=== PATIENT | female | born 1990 | race Caucasian/White ===

== ENCOUNTER 2016-11-02 12:04 | Outpatient (CLI) | payer MEDICAID ==
--- NOTE | 2016-11-02 12:47 | Non Stress Test Report ---
Non Stress Test Datetime Report Generated by CPN: 11/02/2016 12:46 INDICATION Indication for Study: Ordered by Provider; Other Indication for Study (NST) Other: 2vc report MONITORING Monitor Explained: Monitor Explained; Test Explained; Patient Verbalized Understanding Time on Monitor: 11/02/2016 12:25 Time off Monitor: 11/02/2016 12:45 NST Duration: 20 NST INTERVENTIONS NST Interventions: PO Hydration; Reposition Patient Physician Notified NST: Dr Neilsen BABY A: [id number] BABY A Movement : Present Contraction Frequency : none FHR Baseline : 135 Accelerations : 15X15 Decelerations : None Variability : Moderate 6-25bpm NST Review: Meets Criteria for Reactive NST NST Review and Verified By : Cole Bedoya RN NST REPORT Report Trigger: Send Report
--- NOTE | 2016-11-02 15:52 | L&D Discharge Summary ---
OB Discharge Summary Datetime Report Generated by CPN: 11/02/2016 15:52 DISCHARGE DIAGNOSIS Diagnoses/Symptoms Other: Reactive NST, not in labor DIET/ACTIVITY/RESTRICTIONS Diet: Regular Activity: Normal Activity TEACHING/INSTRUCTIONS/REFERRALS Instructions Given To: Patient/family Instructions Understood: Patient Verbalized Understanding; Support Person Verbalized Understanding Referrals: None Educational Materials- Other: Kick counts DISCHARGE INFORMATION Discharged AMA: No Discharge Date/Time: 11/02/2016 12:51 Discharged To: Home Discharge Provider Name: Dr Ruthyen Accompanied By: FOB Discharge Method: Ambulatory Condition: Stable FOLLOW UP INFORMATION Follow Up With: [facility] Follow Up On: As Scheduled
--- NOTE | 2016-11-02 15:53 | L&D Discharge Summary ---
OB Discharge Summary Datetime Report Generated by CPN: 11/02/2016 15:53 DISCHARGE DIAGNOSIS Diagnoses/Symptoms Other: Reactive NST, not in labor DIET/ACTIVITY/RESTRICTIONS Diet: Regular Activity: Normal Activity TEACHING/INSTRUCTIONS/REFERRALS Instructions Given To: Patient/family Instructions Understood: Patient Verbalized Understanding; Support Person Verbalized Understanding Referrals: None Educational Materials- Other: Kick counts DISCHARGE INFORMATION Discharged AMA: No Discharge Date/Time: 11/02/2016 12:51 Discharged To: Home Discharge Provider Name: Dr Ruthyen Accompanied By: FOB Discharge Method: Ambulatory Condition: Stable FOLLOW UP INFORMATION Follow Up With: [facility] Follow Up On: As Scheduled
--- NOTE | 2016-11-03 22:50 | L&D General Admission ---
General Admit Datetime Report Generated by CPN: 11/03/2016 22:45 INFORMATION Patient Age: 26 (11/02/2016 12:04:QS system process) CARE Height (in): 65 (11/02/2016 12:41:QS system process) ALLERGIES Medication Allergies: erythromycin base/MO (11/02/2016) (11/02/2016 12:41:QS system process) Medication Allergies: erythromycin base/MO (06/03/2015) (11/02/2016 12:04:QS system process) DEMOGRAPHICS Address: [address] [place] [id number] (11/02/2016 12:04:QS system process) Zipcode: [address] (11/02/2016 12:04:QS system process) Home (11/02/2016 12:04:QS system process) SSN: [id number] (11/02/2016 12:04:QS system process) Next of Kin Name: ANAHI HAILE (11/02/2016 12:04:QS system process) Next of Kin (11/02/2016 12:04:QS system process) Next of Kin Relationship: OR (11/02/2016 12:04:QS system process) Date of : 1990 (11/02/2016 12:04:QS system process) Marital Status: Single (11/02/2016 12:04:QS system process) Sex: Female (11/02/2016 12:04:QS system process) Race: (11/02/2016 12:04:QS system process) Ethnicity: Non- or (11/02/2016 12:04:QS system process) Druze: None (11/02/2016 12:04:QS system process)
--- NOTE | 2016-11-03 22:50 | Antepartum Discharge Summary ---
Antepartum DC Datetime Report Generated by CPN: 11/03/2016 22:45 DIET/ACTIVITY/RESTRICTIONS Diet: Regular (11/02/2016 12:48:Keila Bedoya RN) Activity: Normal Activity (11/02/2016 12:48:Keila Bedoya RN) TEACHING/INSTRUCTIONS/REFERRALS Instructions Given To: Patient/family (11/02/2016 12:48:Keila Bedoya RN) Instructions Understood: Patient Verbalized Understanding; Support Person Verbalized Understanding (11/02/2016 12:48:Keila Bedoya RN) Referrals: None (11/02/2016 12:48:Keila Bedoya RN) Educational Materials- Other: Kick counts (11/02/2016 12:48:Keila Bedoya RN) DISCHARGE INFORMATION Discharged AMA: No (11/02/2016 12:48:Keila Bedoya RN) Discharge Date/Time: 11/02/2016 12:51 (11/02/2016 12:48:Keila Bedoya RN) Discharged To: Home (11/02/2016 12:48:Keila Bedoya RN) Discharge Provider Name: Dr Francois (11/02/2016 12:48:Keila Bedoya RN) Accompanied By: FOB (11/02/2016 12:48:Keila Bedoya RN) Discharge Method: Ambulatory (11/02/2016 12:48:Keila Bedoya RN) Condition: Stable (11/02/2016 12:48:Keila Bedoya RN) FOLLOW UP INFORMATION Follow Up With: [facility] (11/02/2016 12:48:Keila Bedoya RN) Follow Up On: As Scheduled (11/02/2016 12:48:Keila Bedoya RN)
--- NOTE | 2016-11-03 22:50 | L&D Discharge Summary ---
OB Discharge Summary Datetime Report Generated by CPN: 11/03/2016 22:45 DISCHARGE DIAGNOSIS Diagnoses/Symptoms Other: Reactive NST, not in labor DIET/ACTIVITY/RESTRICTIONS Diet: Regular Activity: Normal Activity TEACHING/INSTRUCTIONS/REFERRALS Instructions Given To: Patient/family Instructions Understood: Patient Verbalized Understanding; Support Person Verbalized Understanding Referrals: None Educational Materials- Other: Kick counts DISCHARGE INFORMATION Discharged AMA: No Discharge Date/Time: 11/02/2016 12:51 Discharged To: Home Discharge Provider Name: Dr Ruthyen Accompanied By: FOB Discharge Method: Ambulatory Condition: Stable FOLLOW UP INFORMATION Follow Up With: [facility] Follow Up On: As Scheduled
--- NOTE | 2016-11-04 04:49 | Antepartum Discharge Summary ---
Antepartum DC Datetime Report Generated by CPN: 11/04/2016 04:46 DIET/ACTIVITY/RESTRICTIONS Diet: Regular (11/02/2016 12:48:Keila Bedoya RN) Activity: Normal Activity (11/02/2016 12:48:Keila Bedoya RN) TEACHING/INSTRUCTIONS/REFERRALS Instructions Given To: Patient/family (11/02/2016 12:48:Keila Bedoya RN) Instructions Understood: Patient Verbalized Understanding; Support Person Verbalized Understanding (11/02/2016 12:48:Keila Bedoya RN) Referrals: None (11/02/2016 12:48:Keila Bedoya RN) Educational Materials- Other: Kick counts (11/02/2016 12:48:Keila Bedoya RN) DISCHARGE INFORMATION Discharged AMA: No (11/02/2016 12:48:Keila Bedoya RN) Discharge Date/Time: 11/02/2016 12:51 (11/02/2016 12:48:Keila Bedoya RN) Discharged To: Home (11/02/2016 12:48:Keila Bedoya RN) Discharge Provider Name: Dr Francois (11/02/2016 12:48:Keila Bedoya RN) Accompanied By: FOB (11/02/2016 12:48:Keila Bedoya RN) Discharge Method: Ambulatory (11/02/2016 12:48:Keila Bedoya RN) Condition: Stable (11/02/2016 12:48:Keila Bedoya RN) FOLLOW UP INFORMATION Follow Up With: [facility] (11/02/2016 12:48:Keila Bedoya RN) Follow Up On: As Scheduled (11/02/2016 12:48:Keila Bedoya RN)
--- NOTE | 2016-11-04 04:49 | L&D Admission Assessment ---
LD ADM ASMT Datetime Report Generated by CPN: 11/04/2016 04:46 WEIGHT Weight (lb): 328 (11/02/2016 12:42:QS system process) Weight (lb): 328 (11/02/2016 12:41:QS system process) Weight (kg): 149.1 (11/02/2016 12:42:QS system process) Weight (kg): 149.1 (11/02/2016 12:41:QS system process) BMI: 54.6 (11/02/2016 12:42:QS system process)
--- NOTE | 2016-11-04 04:49 | L&D Discharge Summary ---
OB Discharge Summary Datetime Report Generated by CPN: 11/04/2016 04:46 DISCHARGE DIAGNOSIS Diagnoses/Symptoms Other: Reactive NST, not in labor DIET/ACTIVITY/RESTRICTIONS Diet: Regular Activity: Normal Activity TEACHING/INSTRUCTIONS/REFERRALS Instructions Given To: Patient/family Instructions Understood: Patient Verbalized Understanding; Support Person Verbalized Understanding Referrals: None Educational Materials- Other: Kick counts DISCHARGE INFORMATION Discharged AMA: No Discharge Date/Time: 11/02/2016 12:51 Discharged To: Home Discharge Provider Name: Dr Ruthyen Accompanied By: FOB Discharge Method: Ambulatory Condition: Stable FOLLOW UP INFORMATION Follow Up With: [facility] Follow Up On: As Scheduled
--- NOTE | 2016-11-04 04:49 | L&D General Admission ---
General Admit Datetime Report Generated by CPN: 11/04/2016 04:46 INFORMATION Patient Age: 26 (11/02/2016 12:04:QS system process) CARE Height (in): 65 (11/02/2016 12:41:QS system process) ALLERGIES Medication Allergies: erythromycin base/ND (11/02/2016) (11/02/2016 12:41:QS system process) Medication Allergies: erythromycin base/ND (06/03/2015) (11/02/2016 12:04:QS system process) DEMOGRAPHICS Address: [address] [place] [id number] (11/02/2016 12:04:QS system process) Zipcode: [address] (11/02/2016 12:04:QS system process) Home (11/02/2016 12:04:QS system process) SSN: [id number] (11/02/2016 12:04:QS system process) Next of Kin Name: ANAHI HAILE (11/02/2016 12:04:QS system process) Next of Kin (11/02/2016 12:04:QS system process) Next of Kin Relationship: OR (11/02/2016 12:04:QS system process) Date of : 1990 (11/02/2016 12:04:QS system process) Marital Status: Single (11/02/2016 12:04:QS system process) Sex: Female (11/02/2016 12:04:QS system process) Race: (11/02/2016 12:04:QS system process) Ethnicity: Non- or (11/02/2016 12:04:QS system process) Judaism: None (11/02/2016 12:04:QS system process)
--- NOTE | 2016-11-04 10:50 | L&D Admission Assessment ---
LD ADM ASMT Datetime Report Generated by CPN: 11/04/2016 10:45 WEIGHT Weight (lb): 328 (11/02/2016 12:42:QS system process) Weight (lb): 328 (11/02/2016 12:41:QS system process) Weight (kg): 149.1 (11/02/2016 12:42:QS system process) Weight (kg): 149.1 (11/02/2016 12:41:QS system process) BMI: 54.6 (11/02/2016 12:42:QS system process)
--- NOTE | 2016-11-04 10:50 | L&D Discharge Summary ---
OB Discharge Summary Datetime Report Generated by CPN: 11/04/2016 10:45 DISCHARGE DIAGNOSIS Diagnoses/Symptoms Other: Reactive NST, not in labor DIET/ACTIVITY/RESTRICTIONS Diet: Regular Activity: Normal Activity TEACHING/INSTRUCTIONS/REFERRALS Instructions Given To: Patient/family Instructions Understood: Patient Verbalized Understanding; Support Person Verbalized Understanding Referrals: None Educational Materials- Other: Kick counts DISCHARGE INFORMATION Discharged AMA: No Discharge Date/Time: 11/02/2016 12:51 Discharged To: Home Discharge Provider Name: Dr Ruthyen Accompanied By: FOB Discharge Method: Ambulatory Condition: Stable FOLLOW UP INFORMATION Follow Up With: [facility] Follow Up On: As Scheduled
--- NOTE | 2016-11-04 10:50 | Antepartum Discharge Summary ---
Antepartum DC Datetime Report Generated by CPN: 11/04/2016 10:45 DIET/ACTIVITY/RESTRICTIONS Diet: Regular (11/02/2016 12:48:Keila Bedoya RN) Activity: Normal Activity (11/02/2016 12:48:Keila Bedoya RN) TEACHING/INSTRUCTIONS/REFERRALS Instructions Given To: Patient/family (11/02/2016 12:48:Keila Bedoya RN) Instructions Understood: Patient Verbalized Understanding; Support Person Verbalized Understanding (11/02/2016 12:48:Keila Bedoya RN) Referrals: None (11/02/2016 12:48:Keila Bedoya RN) Educational Materials- Other: Kick counts (11/02/2016 12:48:Keila Bedoya RN) DISCHARGE INFORMATION Discharged AMA: No (11/02/2016 12:48:Keila Bedoya RN) Discharge Date/Time: 11/02/2016 12:51 (11/02/2016 12:48:Keila Bedoya RN) Discharged To: Home (11/02/2016 12:48:Keila Bedoya RN) Discharge Provider Name: Dr Francois (11/02/2016 12:48:Keila Bedoya RN) Accompanied By: FOB (11/02/2016 12:48:Keila Bedoya RN) Discharge Method: Ambulatory (11/02/2016 12:48:Keila Bedoya RN) Condition: Stable (11/02/2016 12:48:Keila Bedoya RN) FOLLOW UP INFORMATION Follow Up With: [facility] (11/02/2016 12:48:Keila Bedoya RN) Follow Up On: As Scheduled (11/02/2016 12:48:Keila Bedoya RN)
--- NOTE | 2016-11-04 10:50 | L&D General Admission ---
General Admit Datetime Report Generated by CPN: 11/04/2016 10:45 INFORMATION Patient Age: 26 (11/02/2016 12:04:QS system process) CARE Height (in): 65 (11/02/2016 12:41:QS system process) ALLERGIES Medication Allergies: erythromycin base/SC (11/02/2016) (11/02/2016 12:41:QS system process) Medication Allergies: erythromycin base/SC (06/03/2015) (11/02/2016 12:04:QS system process) DEMOGRAPHICS Address: [address] [place] [id number] (11/02/2016 12:04:QS system process) Zipcode: [address] (11/02/2016 12:04:QS system process) Home (11/02/2016 12:04:QS system process) SSN: [id number] (11/02/2016 12:04:QS system process) Next of Kin Name: ANAHI HAILE (11/02/2016 12:04:QS system process) Next of Kin (11/02/2016 12:04:QS system process) Next of Kin Relationship: OR (11/02/2016 12:04:QS system process) Date of : 1990 (11/02/2016 12:04:QS system process) Marital Status: Single (11/02/2016 12:04:QS system process) Sex: Female (11/02/2016 12:04:QS system process) Race: (11/02/2016 12:04:QS system process) Ethnicity: Non- or (11/02/2016 12:04:QS system process) Denominational: None (11/02/2016 12:04:QS system process)
== END 2016-11-02 12:51 | disposition home or self-care (01) ==
LOC: LC 12:04
PROVIDERS: ATTEND Specialist
PROC: 4A1HXCZ Monitoring of Products of Conception, Cardiac Rate, External Approach (ICD-10-PCS; principal; 2016-11-02)
DX: Z34.93 Encounter for supervision of normal pregnancy, unspecified, third trimester (principal); Z36 Encounter for antenatal screening of mother; Z3A.33 33 weeks gestation of pregnancy
CPT/HCPCS: 59025

== ENCOUNTER 2016-11-09 16:38 | Outpatient (CLI) | payer MEDICAID ==
--- NOTE | 2016-11-10 18:45 | Non Stress Test Report ---
Non Stress Test Datetime Report Generated by CPN: 11/10/2016 18:45 Indication for Study: Ordered by Provider Indication for Study (NST) Other: repeat from office Temperature - NST: 98.4 Pulse - NST: 85 RESP - NST: 16 NBPSYS NST: 132 NBPDIA NST: 62 Monitor Explained: Monitor Explained; Test Explained; Patient Verbalized Understanding (Annotations: Data stored by CPN on behalf of user) Time on Monitor: 11/09/2016 16:50 Time off Monitor: 11/09/2016 17:11 NST Interventions: PO Hydration; Reposition Patient Movement : Present Contraction Frequency : 0 FHR Baseline : 135 Accelerations : 15X15 Decelerations : None Variability : Moderate 6-25bpm NST Review: Meets Criteria for Reactive NST NST Review and Verified By : Cole Bedoya RN NST Results: Reactive Report Trigger: Send Report
== END 2016-11-09 17:26 | disposition home or self-care (01) ==
LOC: LC 16:38
PROVIDERS: ATTEND Obstetrics & Gynecology
PROC: 4A1HXCZ Monitoring of Products of Conception, Cardiac Rate, External Approach (ICD-10-PCS; principal; 2016-11-09)
DX: Z34.93 Encounter for supervision of normal pregnancy, unspecified, third trimester (principal); Z36 Encounter for antenatal screening of mother; Z3A.35 35 weeks gestation of pregnancy
CPT/HCPCS: 59025

== ENCOUNTER 2016-11-19 14:35 | Outpatient (CLI) | payer MEDICAID | END 2016-11-19 15:13 | disposition home or self-care (01) | LOC: LC 14:35 | PROVIDERS: ATTEND Obstetrics & Gynecology | PROC: 4A1HXCZ Monitoring of Products of Conception, Cardiac Rate, External Approach (ICD-10-PCS; principal; 2016-11-19) | DX: Z34.93 Encounter for supervision of normal pregnancy, unspecified, third trimester (principal); Z36 Encounter for antenatal screening of mother; Z3A.36 36 weeks gestation of pregnancy | CPT/HCPCS: 59025 ==

== ENCOUNTER 2016-11-26 10:53 | Outpatient (CLI) | payer MEDICAID ==
--- NOTE | 2016-11-26 11:09 | Non Stress Test Report ---
Non Stress Test Datetime Report Generated by CPN: 11/26/2016 11:09 DEMOGRAPHIC EGA NST: 36.3 EGA NST: 35.0 INDICATION Indication for Study: Ordered by Provider Indication for Study: Ordered by Provider Indication for Study (NST) Other: repeat from office VITAL SIGNS Temperature - NST: 98.4 Pulse - NST: 86 Pulse - NST: 85 RESP - NST: 20 RESP - NST: 16 NBPSYS NST: 117 NBPSYS NST: 132 NBPDIA NST: 54 NBPDIA NST: 62 MONITORING Monitor Explained: Monitor Explained; Test Explained; Patient Verbalized Understanding Monitor Explained: Monitor Explained; Test Explained; Patient Verbalized Understanding (Annotations: Data stored by [facility] on behalf of user) Time on Monitor: 11/19/2016 14:48 Time on Monitor: 11/09/2016 16:50 Time off Monitor: 11/19/2016 15:09 Time off Monitor: 11/09/2016 17:11 NST Duration: 21 NST Duration: 21 NST INTERVENTIONS NST Interventions: PO Hydration; Reposition Patient NST Interventions: PO Hydration; Reposition Patient Physician Notified NST: Lakia Yost Physician Notified NST: Maria Alejandra Yost CNM BABY A: [id number] BABY A Movement : Present Movement : Present Movement : Present Contraction Frequency : none Contraction Frequency : 0 FHR Baseline : 145 FHR Baseline : 135 Accelerations : 10X10 Accelerations : 15X15 Decelerations : None Decelerations : None Variability : Moderate 6-25bpm Variability : Moderate 6-25bpm NST Review: Meets Criteria for Reactive NST NST Review: Meets Criteria for Reactive NST NST Review: Meets Criteria for Reactive NST NST Review and Verified By : Ping Kaba RN NST Review and Verified By : Cole Bedoya RN NST Results: Reactive NST Results: Reactive NST Results: Reactive NST REPORT Report Trigger: Send Report Report Trigger: Send Report
--- NOTE | 2016-11-26 12:23 | Non Stress Test Report ---
Non Stress Test Datetime Report Generated by CPN: 11/26/2016 12:23 DEMOGRAPHIC EGA NST: 37.3 INDICATION Indication for Study: Ordered by Provider MONITORING Monitor Explained: Monitor Explained; Test Explained; Patient Verbalized Understanding Time on Monitor: 11/26/2016 11:29 Time off Monitor: 11/26/2016 11:54 NST Duration: 25 NST INTERVENTIONS NST Interventions: PO Hydration; Reposition Patient Physician Notified NST: J. Brown, CNM BABY A Movement : Present Contraction Frequency : none FHR Baseline : 140 Accelerations : 15X15 Variability : Minimal - Undetectable to <=5bpm NST Review: Meets Criteria for Reactive NST NST Review and Verified By : Jesi Dowling RNC NST Results: Reactive NST REPORT Report Trigger: Send Report
== END 2016-11-26 12:27 | disposition home or self-care (01) ==
LOC: LC 10:53
PROVIDERS: ATTEND Specialist
PROC: 4A1HXCZ Monitoring of Products of Conception, Cardiac Rate, External Approach (ICD-10-PCS; principal; 2016-11-26)
DX: Z34.93 Encounter for supervision of normal pregnancy, unspecified, third trimester (principal); Z36 Encounter for antenatal screening of mother; Z3A.36 36 weeks gestation of pregnancy
CPT/HCPCS: 59025

== ENCOUNTER 2016-11-30 14:36 | Outpatient (CLI) | payer MEDICAID ==
--- NOTE | 2016-11-30 15:40 | Non Stress Test Report ---
Non Stress Test Datetime Report Generated by CPN: 11/30/2016 15:39 DEMOGRAPHIC Test Number: 5 EGA NST: 38.0 INDICATION Indication for Study: Ordered by Provider Indication for Study (NST) Other: 2vessel cord, repeat NST MONITORING Monitor Explained: Monitor Explained; Test Explained; Patient Verbalized Understanding Time on Monitor: 11/30/2016 15:10 Time off Monitor: 11/30/2016 15:34 NST Duration: 24 NST INTERVENTIONS NST Interventions: None Physician Notified NST: H. Olman CNM BABY A: [id number] BABY A Movement : Present Contraction Frequency : 0 FHR Baseline : 135 Accelerations : 15X15 Decelerations : None Variability : Moderate 6-25bpm NST Review: Meets Criteria for Reactive NST NST Review and Verified By : ROSEMARY HERNANDEZ, RN NST Results: Reactive NST REPORT Report Trigger: Send Report
== END 2016-11-30 15:37 | disposition home or self-care (01) ==
LOC: LC 14:36
PROVIDERS: ATTEND Student in an Organized Health Care Education/Training Program
PROC: 4A1HXCZ Monitoring of Products of Conception, Cardiac Rate, External Approach (ICD-10-PCS; principal; 2016-11-30)
DX: O26.893 Other specified pregnancy related conditions, third trimester (principal); Z3A.38 38 weeks gestation of pregnancy
CPT/HCPCS: 59025

== ENCOUNTER 2016-12-03 11:04 | Outpatient (CLI) | payer MEDICAID ==
--- NOTE | 2016-12-03 12:53 | Non Stress Test Report ---
Non Stress Test Datetime Report Generated by CPN: 12/03/2016 12:53 DEMOGRAPHIC EGA NST: 38.3 INDICATION Indication for Study: Gestational Hypertension; Other VITAL SIGNS Temperature - NST: 98.3 Pulse - NST: 80 RESP - NST: 18 NBPSYS NST: 119 NBPDIA NST: 58 MONITORING Monitor Explained: Monitor Explained; Test Explained; Patient Verbalized Understanding Time on Monitor: 12/03/2016 11:15 Time off Monitor: 12/03/2016 12:40 NST Duration: 85 NST INTERVENTIONS NST Interventions: PO Hydration; Reposition Patient Physician Notified NST: H Olman CNM REVIEWED STRIP BABY A: [id number] BABY A Movement : Present Contraction Frequency : NONE FHR Baseline : 145 Accelerations : 15X15 Decelerations : None Variability : Moderate 6-25bpm NST Review: Meets Criteria for Reactive NST NST Review and Verified By : GERMAINE DOWNING NST Results: Reactive NST REPORT Report Trigger: Send Report
== END 2016-12-03 12:46 | disposition home or self-care (01) ==
LOC: LC 11:04
PROVIDERS: ATTEND Obstetrics & Gynecology
PROC: 4A1HXCZ Monitoring of Products of Conception, Cardiac Rate, External Approach (ICD-10-PCS; principal; 2016-12-03)
DX: O13.3 Gestational [pregnancy-induced] hypertension without significant proteinuria, third trimester (principal); Z3A.38 38 weeks gestation of pregnancy
CPT/HCPCS: 59025

== ENCOUNTER 2016-12-12 19:52 | Inpatient (IN) | payer MEDICAID ==
[2016-12-12] MEDS ORDERED: ACETAMINOPHEN 325 MG TABLET PO PRN (20:19)
[2016-12-12] MEDS ORDERED: OXYTOCIN/NORMAL SALINE 1,000 ML IV PRN (20:19)
[2016-12-12] MEDS ORDERED: DINOPROSTONE 10 MG VAGINAL INSERT.SR PV ONE (20:19)
[2016-12-12] MEDS ORDERED: ZOLPIDEM TARTRATE 5 MG TABLET PO PRN (20:19)
[2016-12-12] MEDS ORDERED: MAG HYDROX/AL HYDROX/SIMETH SUSP 30 ML UDCUP PO PRN (20:19)
[2016-12-12] MEDS ORDERED: RINGERS SOLUTION,LACTATED 1,000 ML IV ONE (20:19)
[2016-12-12] MEDS ORDERED: RINGERS SOLUTION,LACTATED 300 ML IV ONE (20:19)
[2016-12-12 20:58] LABS: ABSOLUTE EOSINOPHILS # (AUTO) 0.1 10^3/uL (0.0-0.6); ABSOLUTE MONOCYTES (AUTO) 0.7 10^3/uL (0.1-1.4); BASOPHILS % (AUTO) 0.3 % (0-2); EOSINOPHILS % (AUTO) 0.9 % (0-6); HEMOGLOBIN 10.9 g/dL (12.0-15.5); HGB HCT DIFFERENCE -1.3; LYMPHOCYTES % (AUTO) 15.4 % (13-45); MEAN CORPUSCULAR HEMOGLOBIN 27.5 pg (27.0-33.4); MEAN CORPUSCULAR HGB CONC 32.2 g/dL (32.0-36.0); MEAN CORPUSCULAR VOLUME 85 fl (80-97); MONOCYTES % (AUTO) 5.3 % (3-13); RED BLOOD COUNT 3.98 10^6/uL (3.72-5.28); RED CELL DISTRIBUTION WIDTH 15.9 % (11.5-14.0); SEGMENTED NEUTROPHILS % (AUTO) 78.1 % (42-78); WHITE BLOOD COUNT 12.7 10^3/uL (4.0-10.5)
[2016-12-12 21:40] LABS: APPEARANCE,URINE CLOUDY; BILIRUBIN,URINE NEGATIVE (NEGATIVE); GLUCOSE, URINE NEGATIVE (NEGATIVE); KETONES,URINE NEGATIVE (NEGATIVE); LEUKOCYTE ESTERASE,URINE LARGE (NEGATIVE); NITRITE,URINE NEGATIVE (NEGATIVE); PROTEIN,URINE NEGATIVE (NEGATIVE); URINE SPECIFIC GRAVITY 1.031
[2016-12-12 22:05] LABS: URINE BARBITURATES SCREEN NEGATIVE; URINE METHADONE SCREEN NEGATIVE; URINE OPIATES LOW NEGATIVE; URINE PHENCYCLIDINE SCREEN NEGATIVE
[2016-12-13] MEDS ORDERED: DINOPROSTONE 10 MG VAGINAL INSERT.SR ONE (00:34)
[2016-12-13] MEDS ORDERED: RINGERS SOLUTION,LACTATED 1,000 ML IV PRN (01:51)
[2016-12-13] MEDS ORDERED: FLUTICASONE/SALMETEROL DISKUS 250-50 MCG/DOSE IH ONE (01:55)
[2016-12-13] MEDS ORDERED: MISOPROSTOL 0.1 MG TABLET ONE ×3 (14:31→22:53)
[2016-12-13] MEDS: FLUTICASONE/SALMETEROL DISKUS 250-50 MCG/DOSE IH SCH ×2 (14:33→23:04)
--- NOTE | 2016-12-13 18:59 | L&D Progress Notes ---
PROGRESS NOTES Datetime Report Generated by CPN: 12/13/2016 18:59 PROGRESS NOTE Impression: Reassuring Heart Rate Procedures: Sterile Vag Exam Plan: Continue Present Management; Induction Vital Signs : Reviewed Comment: Minimal change in SVE with cervidil dinner cytotec over night pitocin in the am MEMBRANES Pooling: Negative Membranes: Intact Membranes: Intact FETUS A FHR - Baseline: 135 Monitoring: External US Variability: Moderate 6-25bpm Accelerations: 15X15 FHR Category: Category I : 38.3 Presentation: Vertex SIGNATURE SIGNATURE: [id number];[id number] SIGNATURE: [id number] SIGNATURE: [id number] SIGNATURE: [id number] SIGNATURE: [id number] SIGNATURE: [id number] Assignment: Jose E Spence DO Signature: with User ID: Angela : with User ID: Angela
[2016-12-13] MEDS ORDERED: MISOPROSTOL 0.1 MG TABLET PO ONE (22:50)
[2016-12-13] MEDS ORDERED: ZOLPIDEM TARTRATE 5 MG TABLET ONE (22:54)
[2016-12-14] MEDS ORDERED: MISOPROSTOL 0.1 MG TABLET PO ONE (02:50)
[2016-12-14] MEDS ORDERED: MISOPROSTOL 0.1 MG TABLET ONE (03:01)
[2016-12-14] MEDS ORDERED: OXYTOCIN/NORMAL SALINE 20 UNIT/1,000 ML RTUINJ ONE (08:42)
[2016-12-14] MEDS: FLUTICASONE/SALMETEROL DISKUS 250-50 MCG/DOSE IH SCH ×2 (08:58→22:25)
[2016-12-14] MEDS ORDERED: EPHEDRINE SULFATE INJ 50 MG/1 ML AMPULE ONE (13:37)
[2016-12-14] MEDS ORDERED: BUPIVACAINE HCL 0.25 % INJ/PF (2.5 MG/1 ML) 30 ML VIAL ONE (13:38)
[2016-12-14] MEDS ORDERED: FENTANYL/BUPIVACAINE/NS/PF 200 MCG/100 ML RTUINJ EPI ONE (13:38)
[2016-12-14] MEDS ORDERED: MISOPROSTOL 0.2 MG TABLET ONE (17:43)
[2016-12-14] MEDS ORDERED: ALBUTEROL SULFATE HFA (90 MCG/PUFF) 200 PUFF/8.5 GM MDI IH PRN ×2 (18:18→19:46)
[2016-12-14] MEDS ORDERED: DIPHENHYDRAMINE HCL 25 MG CAPSULE PO PRN (18:19)
[2016-12-14] MEDS ORDERED: ACETAMINOPHEN WITH CODEINE #3 TABLET PO PRN ×2 (18:19)
[2016-12-14] MEDS ORDERED: GLYCERIN/WITCH HAZEL LEAF 1 EACH MED..PAD TP PRN (18:19)
[2016-12-14] MEDS ORDERED: DIPH/PERTUSS(ACELL)/TETANUS VAC/PF 0.5 ML SYR (>=10YO) IM PRN (18:19)
[2016-12-14] MEDS ORDERED: ACETAMINOPHEN 650 MG SUPP.RECT PR PRN (18:19)
[2016-12-14] MEDS ORDERED: MEASLES,MUMPS&RUBELLA VACC/PF 0.5 ML VIAL SUBCUT PRN (18:19)
[2016-12-14] MEDS ORDERED: PROMETHAZINE HCL INJ 25 MG/1 ML VIAL IV PRN (18:19)
[2016-12-14] MEDS ORDERED: BENZOCAINE/MENTHOL AEROSOL SPRAY 56 ML TOP PRN (18:19)
[2016-12-14] MEDS ORDERED: PSEUDOEPHEDRINE HCL 30 MG TABLET PO PRN (18:19)
[2016-12-14] MEDS ORDERED: MAGNESIUM HYDROXIDE SUSP 30 ML UDCUP PO PRN (18:19)
[2016-12-14] MEDS ORDERED: OXYTOCIN/NORMAL SALINE 1,000 ML IV PRN (18:19)
[2016-12-14] MEDS ORDERED: PROMETHAZINE HCL 25 MG TABLET PO PRN (18:19)
[2016-12-14] MEDS ORDERED: DIBUCAINE 1% OINTMENT 28 GM TP PRN (18:19)
[2016-12-14] MEDS ORDERED: PROMETHAZINE HCL 25 MG SUPP.RECT PR PRN (18:19)
[2016-12-14] MEDS ORDERED: ZOLPIDEM TARTRATE 5 MG TABLET PO PRN (18:19)
[2016-12-14] MEDS ORDERED: NA PHOS,M-B/NA PHOS,DI-BA (ADULT) 133 ML ENEMA PR PRN (18:19)
[2016-12-14] MEDS ORDERED: FLUTICASONE/SALMETEROL DISKUS 250-50 MCG/DOSE IH SCH (18:30)
--- NOTE | 2016-12-14 19:31 | Delivery Summary ---
Del Sum A-C Datetime Report Generated by CPN: 12/14/2016 19:30 DELIVERY PERSONNEL DELIVERY PERSONNEL: [id number] Delivery Doctor:: Gilbert Kimble MD Labor and Delivery Nurse:: Breanna Castelan RNoperations administrative assistant Nurse:: Keila Bedoya RN Nursery Nurse:: Yashira Tang RN Nursery Nurse:: Natasha Montejo Tech/AUDREY: Chrissie Alatorre CNA II MATERNAL INFORMATION Delivery Anesthesia: Epidural Medications After Delivery: Pitocin Bolus-Please Comment; Pitocin Drip 20 Units/1000ml NSS Estimated Blood Loss (ml): 250 Maternal Complications: None LABOR SUMMARY EDC: 12/14/2016 00:00 No. Babies in Womb: 1 Attempted: No Labor Anesthesia: Epidural LABOR INFORMATION Reason for Induction: Gestational Hypertension Reason for Induction- Other: 2 vessel cord Onset of Labor: 12/14/2016 15:30 Complete Dilatation: 12/14/2016 17:40 Cervical Ripening Agents: Cervidil; Cytotec @ Oxytocin: Induction Group B Beta Strep: negative Antibiotics # of Doses: 0 Steroids Given: None Reason Steroids Not Administered: Not Applicable MEMBRANES Membranes Rupture Method: Artificial Rupture of Membranes: 12/14/2016 09:25 Length of Rupture (hr): 8.57 Amniotic Fluid Color: Particulate Meconium Amniotic Fluid Amount: Moderate Amniotic Fluid Odor: Normal STAGES OF LABOR Stage 1 hr: 2 Stage 1 min: 10 Stage 2 hr: 0 Stage 2 min: 19 Stage 3 hr: 0 Stage 3 min: 6 Total Time in Labor hr: 2 Total Time in Labor min: 35 VAGINAL DELIVERY Episiotomy: None Laceration Extension: First Degree Laceration Type: Perineal Laceration Repair: Yes Laceration Repair Note: repair with 3-0 chromic suture Sponge Count Correct: Yes; Vaginal Sweep Performed Sharps Count Correct: Yes CSECTION DELIVERY Primary Indication: N/A Secondary Indication: N/A CSection Incidence: N/A Labor: N/A Elective: N/A CSection Incision: N/A BABY A INFORMATION Delivery Date/Time: 12/14/2016 17:59 Method of Delivery: Vaginal Born in Route : No : N/A Forceps: N/A Vacuum Extraction: N/A Shoulder Dystocia : No PRESENTATION/POSITION BABY A Presentation: Cephalic Cephalic Presentation: Vertex Vertex Position: occipital posterior Breech Presentation: N/A PLACENTA INFORMATION BABY A Placenta Delivery Time : 12/14/2016 18:05 Placenta Method of Delivery: Spontaneous Placenta Status: Delivered SCORES BABY A Heart Rate 1 min: >100 bpm Resp Effort 1 min: Good Cry Reflex Irritability 1 min: Cough or Sneeze or Pulls Away Muscle Tone 1 min: Active Motion Color 1 min: Blue/Pale Resuscitation Effort 1 min: Tactile Stimulation SCORE 1 MIN: 8 Heart Rate 5 min: >100 bpm Resp Effort 5 min: Good Cry Reflex Irritability 5 min: Cough or Sneeze or Pulls Away Muscle Tone 5 min: Active Motion Color 5 min: Body [place], Extremities Blue Resuscitation Effort 5 min: Tactile Stimulation SCORE 5 MIN: 9 INFORMATION BABY A Gestational Age at Delivery: 40.0 Gestational Status: Full Term- 39- 40.6 Weeks Outcome : Liveborn Infant Condition : Stable Sex: Female IDENTIFICATION BABY A Infant Verification Date/Time: 12/14/2016 18:15 ID Band Number: [id number] Mother's Name Verified: Yes Infant RN Verifying Infant: BL RODLUND, RN Additional Verifying Personnel: D MAK, US/GROCERY STORE BAGGER WEIGHT/LENGTH BABY A Birthweight (gm): 3219 Weight (lb): 7 Weight (oz): 2 Infant Length (in): 19.75 Length (cm): 50.17 CORD INFORMATION BABY A No. Cord Vessels: 2 Nuchal Cord : Around Neck x1, Loose Cord Blood Taken: Yes-For Eval (Mom's Blood Type - or O+) Suction: None ASSESSMENT BABY A Complications: Multiple Late Decels; Multiple Variable Decels; Meconium; Other Complications- Other: 2 vessel cord Physical Findings at Delivery: Within Normal Limits Respirations: Appears Normal Skin to Skin: Yes Threader Operator/ALS Called : No Infant Care By: Rosette Tang RN Transferred To: Remains with Mother BABY B INFORMATION : N/A SIGNATURES Signature: with User ID: [email or web address]
--- NOTE | 2016-12-14 20:14 | Admission Physical ---
Datetime Report Generated by CPN: 12/14/2016 20:14 CURRENT ADMISSION Chief Complaint: Other Chief Complaint Other: 2vc, gest htn Indication for Induction: Gestational HTN; Other Admit Plan: Admit to Unit; Initiate Labor Induction Protocol ALLERGIES Medication Allergies: Yes Medication Allergies: erythromycin base/MD/Generalized alie (11/30/2016) Medication Allergies: erythromycin base/MD (11/19/2016) Medication Allergies: erythromycin base/MD (11/02/2016) Medication Allergies: erythromycin base/MD (06/03/2015) Latex: No Latex Allergies Food Allergies: None Environmental Allergies: None OBSTETRICAL HISTORY EDC: 12/14/2016 00:00 : 3 Para: 1 Term: 1 : 0 SAB: 2 IAB: 0 Ectopic: 0 Livin Cesareans: 0 VBACs: 0 Multiple Births: 0 Gestational Diabetes: No Rh Sensitization: No Incompetent Cervix: No MAGGIE: No Infertility: No ART Treatment: No Uterine Anomaly: No IUGR: No Hx Previous C/S: No Macrosomia: No Hx Loss/Stillborn: No PIH: No Hx : No Placenta Previa/Abruption: No Depression/PP Depression: No PTL/PROM: No Post Hemorrhage: No Current Procedures: Ultrasound; NST Obstetrical History Comments: G1 - at 39 wks (2013) G2 - SAB at 8 wks (2014) G3 - current preg SEE RECORDS Alcohol: No Marijuana : Yes Marijuana Frequency: Occasional Previous Treatment: None Marijuana Comments: positive on admission Cocaine: No Other Illicit Drugs: No Cigarettes: Current Everyday Smoker. 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 Heart Disease: No Hosp/Surgery: No Autoimmune Disorder: No Anesthetic Complications: No Kidney Disease: No Abnormal Pap Smear: No Neuro/Epilepsy: No Psychiatric Disorders: Yes Other Medical Diseases: Yes Hepatitis/Liver Disease: No Significant Family History: No Varicosities/Phlebitis: No Trauma/Violence : No Thyroid Dysfunction: No Medical History Comments: Anxiety, depression/Asthma MORBID OBESITY INFECTIOUS HISTORY Gonorrhea: No Genital Herpes: Yes Chlamydia: No Tuberculosis: No Syphilis: No Hepatitis: No HIV/AIDS Exposure: No Rash or Viral Illness: No HPV: No Infectious History Comments: unsure of last outbreak PHYSICAL EXAM General: Normal HEENT: Normal Neurologic: Normal Thyroid: Normal Heart: Normal Lungs: Normal Breast: Deferred Back: Normal Abdomen: Normal Genitourinary Exam: Normal Extremities: Normal DTRs: Normal Pelvic Type: Adequate Vital Signs: Reviewed MEMBRANES Pooling: Negative Membranes: Intact Membranes: Intact FETUS A EGA: 39.5 Decelerations: None Presentation: Vertex Admit Comment: EFW 8 lbs. Very overweight but cleared by anes per office record PLANS FOR LABOR AND DELIVERY Labor and Delivery: None Pain Management: None Feeding Preference: Both Benefit of Breast Feed Discussed: Yes Circumcision: N/A INFORMED CONSENT Signature: with User ID: [email or web address]
[2016-12-14] MEDS: IBUPROFEN 800 MG TABLET PO SCH (22:24)
[2016-12-14] MEDS: FAMOTIDINE 20 MG TABLET PO SCH (22:25)
[2016-12-15] MEDS: IBUPROFEN 800 MG TABLET PO SCH ×3 (05:50→21:33)
[2016-12-15 07:39] LABS: HEMATOCRIT 29.1 % (36.0-47.0); HEMOGLOBIN 9.8 g/dL (12.0-15.5); HGB HCT DIFFERENCE 0.3; MEAN CORPUSCULAR HEMOGLOBIN 28.4 pg (27.0-33.4); MEAN CORPUSCULAR HGB CONC 33.5 g/dL (32.0-36.0); MEAN CORPUSCULAR VOLUME 85 fl (80-97); RED BLOOD COUNT 3.43 10^6/uL (3.72-5.28); RED CELL DISTRIBUTION WIDTH 15.6 % (11.5-14.0)
--- NOTE | 2016-12-15 08:52 | PDOC PROGRESS REPORT ---
Subjective-OB Subjective: Post Delivery Day: 26 year old. Denies any needs at this time Physical Exam (OB) Vital Signs: Temp Pulse Resp BP Pulse Ox 97.8 F 77 16 110/52 L 99 12/15/16 08:10 12/15/16 08:10 12/15/16 08:10 12/15/16 08:10 12/15/16 08:10 Intake & Output 12/14/16 12/15/16 12/16/16 06:59 06:59 06:59 Weight 145 kg - Lochia Lochia Amount: Scant < 10 ml Lochia Color: Rubra/Red - Abdomen Description: Tender, Soft, Round Hernia Present: No Bowel Sounds: Normoactive Flatus Presence: Present Stool: No Fundal Description: Firm, Midline Fundal Height: u/u - u/2 Objective-Diagnostic Laboratory: 12/15/16 07:21 12/15/16 07:21 WBC 14.0 H RBC 3.43 L Hgb 9.8 L Hct 29.1 L MCV 85 MCH 28.4 MCHC 33.5 RDW 15.6 H Plt Count 358
[2016-12-15] MEDS: FERROUS SULFATE 325 MG TABLET PO SCH ×2 (09:44→17:52)
[2016-12-15] MEDS: VALACYCLOVIR HCL 500 MG TABLET PO SCH (09:44)
[2016-12-15] MEDS: PRENATAL VITAMIN W-O CA NO5/FE FUMARATE/FA CAPSULE PO SCH (09:44)
[2016-12-15] MEDS: DOCUSATE SODIUM 100 MG CAPSULE PO SCH ×2 (09:44→17:52)
[2016-12-15] MEDS: SENNOSIDES/DOCUSATE 8.6-50 MG 1 EACH TABLET PO SCH (09:45)
[2016-12-15] MEDS: FAMOTIDINE 20 MG TABLET PO SCH ×2 (09:45→21:33)
[2016-12-15] MEDS: FLUTICASONE/SALMETEROL DISKUS 250-50 MCG/DOSE IH SCH ×2 (09:46→21:33)
[2016-12-15 09:54] LABS: CREATININE RESULT 0.49 mg/dL (0.52-1.25)
[2016-12-15 10:32] LABS: PARTIAL THROMBOPLASTIN TIME 30.9 SEC (23.5-35.8); PROTHROMBIN TIME 12.1 SEC (11.4-15.4)
[2016-12-15] MEDS: ENOXAPARIN SODIUM INJ 40 MG/0.4 ML DISP.SYRIN SUBCUT SCH (10:52)
[2016-12-16] MEDS: IBUPROFEN 800 MG TABLET PO SCH (05:18)
[2016-12-16] MEDS: ENOXAPARIN SODIUM INJ 40 MG/0.4 ML DISP.SYRIN SUBCUT SCH (08:11)
--- NOTE | 2016-12-16 09:15 | PDOC DISCHARGE SUMMARY ---
Final Diagnosis Discharge Date: 12/16/16 - Final Diagnosis (1) Anxiety and depression Is this a current diagnosis for this admission?: Yes (2) Delivery normal Is this a current diagnosis for this admission?: Yes (3) Gestational [-induced] hypertension without significant proteinuria , complicating childbirth Is this a current diagnosis for this admission?: Yes (4) Asthma exacerbation Is this a current diagnosis for this admission?: Yes Discharge Data - Discharge Medication Home Medications: Hydrocodone/Acetaminophen [Frontenac 5-325 Tablet] 1 each PO Q4 PRN #15 tablet 12/17 Albuterol Sulfate [Albuterol Sulfate Hfa] 2 inh IH Q2 #1 hfa.aer.ad 03/07/15 Prednisone [Deltasone 10 mg Tablet] 10 mg PO ASDIR PRN #21 tablet 03/07/15 Albuterol Sulfate [Albuterol Sulfate 2.5mg/3 mL] 2.5 mg IH Q4 PRN #50 units Albuterol Sulfate [Albuterol Sulfate Hfa] 2 inh IH Q2 #1 hfa.aer.ad 05/12/15 Prednisone [Deltasone 10 mg Tablet] 10 mg PO ASDIR PRN #21 tablet 05/12/15 Sulfamethoxazole/Trimethoprim [Sulfamethoxazole-Tmp Ds Tablet] 2 tab PO BID #40 tablet 05/12/15 Oxycodone HCl/Acetaminophen [Percocet 5-325 mg Tablet] 1 - 2 tab PO ASDIR PRN # 15 tablet 05/22/15 Guaifenesin 100 mg PO Q6 #120 ml 06/03/15 Methylprednisolone [Medrol Dosepack (4 mg/Tab) 21 Tab/Dosepak] 4 mg PO ASDIR PRN #21 tab.ds.pk 06/03/15 Vit #76/Iron,Carb/FA [Prenatabs Rx Tablet] 1 tab PO DAILY 11/26/16 Valacyclovir HCl [Valtrex 500 mg Tablet] 500 mg PO DAILY 11/26/16 Albuterol Sulfate [Proair HFA Inhalation Aerosol 8.5 gm MDI] 1 puff IH Q4H PRN 11/30/16 Calcium Carbonate [Tums Chewable 500 mg Tab.chew] 500 mg PO MEALSHS PRN Diphenhydramine HCl [Benadryl] 25 mg PO QHS PRN 11/30/16 Fluticasone/Salmeterol [Advair 250-50 Diskus 28 dose] 1 inh IH Q12H 11/30/16 Acetaminophen with Codeine [Tylenol #3 Tablet] 2 each PO Q4HP PRN #14 tablet Docusate Sodium [Colace 100 mg Capsule] 100 mg PO BID #30 capsule 12/16/16 Ferrous Sulfate [Feosol 325 mg Tablet] 325 mg PO BID #60 tablet 12/16/16 Fluoxetine HCl [Prozac] 10 mg PO DAILY #30 capsule 12/16/16 Ibuprofen [Motrin 800 mg Tablet] 800 mg PO Q8 #60 tablet 12/16/16 Gestational Age: 40.0 Reason(s) for Admission: Induction of Labor, PIH Procedures: NST Intrapartum Procedure(s): Spontaneous Vaginal Delivery Complication(s): Laceration-Perineal Laceration-Degree: 1st - [place] Data Baby 1 Female at 1 minute: 8 at 5 minutes: 9 Weight: 3219 kg Home with Mother: Yes Complications: No - Diagnosis Test Laboratory: Temp Pulse Resp BP Pulse Ox 97.8 F 65 18 138/61 H 100 12/16/16 07:38 12/16/16 07:38 12/16/16 07:38 12/16/16 07:38 12/16/16 07:38 12/12/16 12/12/16 12/15/16 20:43 21:07 07:21 RBC 3.98 3.43 L Hgb 10.9 L 9.8 L Hct 34.0 L 29.1 L Urine Opiates Screen NEGATIVE - Discharge information/Instructions Discharge Activity: Activity As Tolerated, Pelvic Rest, No tub bath Discharge Diet: Regular Disposition: HOME, SELF-CARE Follow up with: [facility] in: 1, Weeks - bp check, restarted on prozac
[2016-12-16] MEDS: FLUTICASONE/SALMETEROL DISKUS 250-50 MCG/DOSE IH SCH (09:54)
[2016-12-16] MEDS: PRENATAL VITAMIN W-O CA NO5/FE FUMARATE/FA CAPSULE PO SCH (09:55)
[2016-12-16] MEDS: SENNOSIDES/DOCUSATE 8.6-50 MG 1 EACH TABLET PO SCH (09:55)
[2016-12-16] MEDS: DOCUSATE SODIUM 100 MG CAPSULE PO SCH (09:55)
[2016-12-16] MEDS: VALACYCLOVIR HCL 500 MG TABLET PO SCH (09:55)
[2016-12-16] MEDS: FAMOTIDINE 20 MG TABLET PO SCH (09:55)
[2016-12-16] MEDS: FERROUS SULFATE 325 MG TABLET PO SCH (09:55)
[2016-12-16 10:15] VITALS: BP 109/55
== END 2016-12-16 12:15 | disposition home or self-care (01) | DRG 774 ==
LOC: LR 19:52 → 2S 12-14 20:12
PROVIDERS: ADMIT Obstetrics & Gynecology; ATTEND Obstetrics & Gynecology
PROC: 10E0XZZ Delivery of Products of Conception, External Approach (ICD-10-PCS; principal; 2016-12-14)
PROC: 0HQ9XZZ Repair Perineum Skin, External Approach (ICD-10-PCS; 2016-12-14)
DX: O13.4 Gestational [pregnancy-induced] hypertension without significant proteinuria, complicating childbirth (principal); O98.52 Other viral diseases complicating childbirth; Z68.43 Body mass index [BMI] 50.0-59.9, adult; J45.901 Unspecified asthma with (acute) exacerbation; O99.214 Obesity complicating childbirth; E66.01 Morbid (severe) obesity due to excess calories; A60.00 Herpesviral infection of urogenital system, unspecified; O69.89X0 Labor and delivery complicated by other cord complications, not applicable or unspecified; O62.3 Precipitate labor; O70.0 First degree perineal laceration during delivery; O69.81X0 Labor and delivery complicated by cord around neck, without compression, not applicable or unspecified; O76 Abnormality in fetal heart rate and rhythm complicating labor and delivery; B00.9 Herpesviral infection, unspecified; O99.344 Other mental disorders complicating childbirth; Z3A.39 39 weeks gestation of pregnancy; Z37.0 Single live birth; O99.334 Smoking (tobacco) complicating childbirth; F17.210 Nicotine dependence, cigarettes, uncomplicated; O75.89 Other specified complications of labor and delivery; F41.8 Other specified anxiety disorders; O99.324 Drug use complicating childbirth; F12.90 Cannabis use, unspecified, uncomplicated
CPT/HCPCS: 36415; 80307; 81005; 82565; 85025; 85027; 85610; 85730; 86592; 86850; 86900; 86901; J1650; J2590; J3490

== ENCOUNTER → 2017-05-31 | Outpatient (CLI) | payer MEDICAID ==
[2017-05-31 18:01] LABS: ALBUMIN 4.1 g/dL (3.5-5.0); ANION GAP 12 (5-19); BLOOD UREA NITROGEN 10 mg/dL (7-20); CALCIUM 9.7 mg/dL (8.4-10.2); CARBON DIOXIDE 24 mmol/L (22-30); CHLORIDE 102 mmol/L (98-107); CREATININE RESULT 0.54 mg/dL (0.52-1.25); GLUCOSE 80 mg/dL (75-110); POTASSIUM 4.4 mmol/L (3.6-5.0); SODIUM 138.1 mmol/L (137-145); URIC ACID 2.4 mg/dL (2.5-6.2)
[2017-05-31 18:03] LABS: ALANINE AMINOTRANSFERASE 41 U/L (9-52); ALKALINE PHOSPHATASE 123 U/L (38-126); ASPARTATE AMINO TRANSFERASE 19 U/L (14-36); BILIRUBIN,DIRECT 0.4 mg/dL (0.0-0.4); BILIRUBIN,TOTAL 0.6 mg/dL (0.2-1.3); LDH 359 U/L (313-618)
== END ==
LOC: OD 16:30
PROVIDERS: ATTEND Nurse Practitioner Women's Health
DX: O99.212 Obesity complicating pregnancy, second trimester (principal)
CPT/HCPCS: 36415; 80053; 83615; 84550

== ENCOUNTER 2017-11-10 12:07 | Outpatient (CLI) | payer MEDICAID | END 2017-11-10 12:56 | disposition home or self-care (01) | LOC: LC 12:07 | PROVIDERS: ATTEND Obstetrics & Gynecology | PROC: 4A1HXCZ Monitoring of Products of Conception, Cardiac Rate, External Approach (ICD-10-PCS; principal; 2017-11-10) | DX: Z34.93 Encounter for supervision of normal pregnancy, unspecified, third trimester (principal) | CPT/HCPCS: 59025 ==

== ENCOUNTER 2017-11-14 11:46 | Outpatient (CLI) | payer MEDICAID ==
--- NOTE | 2017-11-14 12:01 | Non Stress Test Report ---
Non Stress Test Datetime Report Generated by CPN: 11/14/2017 12:00 INDICATION Indication for Study: Ordered by Provider MONITORING Monitor Explained: Monitor Explained; Test Explained Time on Monitor: 11/10/2017 12:22 Time off Monitor: 11/10/2017 12:48 NST Duration: 26 NST INTERVENTIONS NST Interventions: None Physician Notified NST: P. Yost, CNM BABY A: [id number] BABY A Movement : Present Contraction Frequency : none FHR Baseline : 140 Accelerations : 15X15 Decelerations : None Variability : Moderate 6-25bpm NST Review: Meets Criteria for Reactive NST NST Review and Verified By : D Nitesh RNC NST Results: Reactive NST REPORT Report Trigger: Send Report
[2017-11-14 13:03] LABS: APPEARANCE,URINE SLIGHTLY-CLOUDY; BILIRUBIN,URINE NEGATIVE (NEGATIVE); COLOR,URINE YELLOW; GLUCOSE, URINE NEGATIVE (NEGATIVE); KETONES,URINE NEGATIVE (NEGATIVE); LEUKOCYTE ESTERASE,URINE NEGATIVE (NEGATIVE); NITRITE,URINE NEGATIVE (NEGATIVE); PROTEIN,URINE NEGATIVE (NEGATIVE); URINE SPECIFIC GRAVITY 1.023
[2017-11-14 13:28] LABS: URINE AMPHETAMINES SCREEN NEGATIVE; URINE BARBITURATES SCREEN NEGATIVE; URINE BENZODIAZEPINES SCREEN NEGATIVE; URINE COCAINE SCREEN NEGATIVE; URINE MARIJUANA (THC) SCREEN NEGATIVE; URINE METHADONE SCREEN NEGATIVE; URINE PHENCYCLIDINE SCREEN NEGATIVE
[2017-11-14 13:32] LABS: UR PRO/CREAT RATIO RESULT 0.1 mg/mg (0.0-0.2); URINE CREATININE 106.8 mg/dL (16-327)
[2017-11-14 14:01] LABS: ABSOLUTE BASOPHILS # (AUTO) 0.1 10^3/uL (0.0-0.2); ABSOLUTE EOSINOPHILS # (AUTO) 0.1 10^3/uL (0.0-0.6); ABSOLUTE LYMPHOCYTES (AUTO) 1.6 10^3/uL (0.5-4.7); ABSOLUTE MONOCYTES (AUTO) 0.5 10^3/uL (0.1-1.4); ABSOLUTE NEUT (AUTO) 7.8 10^3/uL (1.7-8.2); EOSINOPHILS % (AUTO) 0.8 % (0-6); HEMATOCRIT 35.5 % (36.0-47.0); HEMOGLOBIN 11.7 g/dL (12.0-15.5); LYMPHOCYTES % (AUTO) 15.7 % (13-45); MEAN CORPUSCULAR HEMOGLOBIN 29.2 pg (27.0-33.4); MEAN CORPUSCULAR VOLUME 88 fl (80-97); MONOCYTES % (AUTO) 5.3 % (3-13); PLATELET COUNT 335 10^3/uL (150-450); RED BLOOD COUNT 4.02 10^6/uL (3.72-5.28); RED CELL DISTRIBUTION WIDTH 16.3 % (11.5-14.0); SEGMENTED NEUTROPHILS % (AUTO) 77.2 % (42-78); TOTAL CELLS COUNTED % (AUTO) 100 %; WHITE BLOOD COUNT 10.1 10^3/uL (4.0-10.5)
[2017-11-14 14:22] LABS: ALANINE AMINOTRANSFERASE 71 U/L (9-52); ALBUMIN 3.5 g/dL (3.5-5.0); ALKALINE PHOSPHATASE 157 U/L (38-126); ANION GAP 14 (5-19); ASPARTATE AMINO TRANSFERASE 33 U/L (14-36); BILIRUBIN,DIRECT 0.4 mg/dL (0.0-0.4); BILIRUBIN,TOTAL 0.4 mg/dL (0.2-1.3); BLOOD UREA NITROGEN 12 mg/dL (7-20); CALCIUM 9.9 mg/dL (8.4-10.2); CARBON DIOXIDE 23 mmol/L (22-30); CHLORIDE 103 mmol/L (98-107); GLUCOSE 57 mg/dL (75-110); LDH 332 U/L (313-618); POTASSIUM 4.6 mmol/L (3.6-5.0); SODIUM 140.3 mmol/L (137-145); TOTAL PROTEIN 6.7 g/dL (6.3-8.2); URIC ACID 3.6 mg/dL (2.5-6.2)
== END 2017-11-14 16:49 | disposition home or self-care (01) ==
LOC: LC 11:46
PROVIDERS: ATTEND Obstetrics & Gynecology Gynecology
PROC: 4A1HXCZ Monitoring of Products of Conception, Cardiac Rate, External Approach (ICD-10-PCS; principal; 2017-11-14)
DX: O47.1 False labor at or after 37 completed weeks of gestation (principal); O99.283 Endocrine, nutritional and metabolic diseases complicating pregnancy, third trimester; E86.0 Dehydration; Z3A.38 38 weeks gestation of pregnancy
CPT/HCPCS: 36415; 59025; 80053; 80307; 80361; 81005; 82570; 83615; 84156; 84550; 85025

== ENCOUNTER → 2017-11-18 | Outpatient (CLI) | payer MEDICAID ==
[~2017-11-18] MED LIST: OXYTOCIN/NORMAL SALINE 20 UNIT/1,000 ML RTUINJ IV PRN; RINGERS SOLUTION,LACTATED 1,000 ML IV PRN; RINGERS SOLUTION,LACTATED 300 ML IV ONE
--- NOTE | 2017-11-18 06:27 | Non Stress Test Report ---
Non Stress Test Datetime Report Generated by CPN: 11/18/2017 06:27 DEMOGRAPHIC EGA NST: 38.3 INDICATION Indication for Study: Ordered by Provider MONITORING Monitor Explained: Monitor Explained; Test Explained; Patient Verbalized Understanding Time on Monitor: 11/14/2017 12:07 Time off Monitor: 11/14/2017 12:28 NST Duration: 21 NST INTERVENTIONS NST Interventions: PO Hydration; Reposition Patient Physician Notified NST: H.Olman, CNM BABY A: [id number] BABY A Movement : Present Contraction Frequency : None FHR Baseline : 130 Accelerations : 15X15 Decelerations : None Variability : Moderate 6-25bpm NST Review: Meets Criteria for Reactive NST NST Review and Verified By : GERMAINE MELTON Results: Reactive NST REPORT Report Trigger: Send Report
[2017-11-18 06:54] LABS: APPEARANCE,URINE SLIGHTLY-CLOUDY; BILIRUBIN,URINE NEGATIVE (NEGATIVE); COLOR,URINE YELLOW; GLUCOSE, URINE NEGATIVE (NEGATIVE); KETONES,URINE NEGATIVE (NEGATIVE); LEUKOCYTE ESTERASE,URINE TRACE (NEGATIVE); NITRITE,URINE NEGATIVE (NEGATIVE); PROTEIN,URINE NEGATIVE (NEGATIVE); URINE SPECIFIC GRAVITY 1.019; UROBILINOGEN,URINE NEGATIVE mg/dL (<2.0)
[2017-11-18 07:08] LABS: URINE AMPHETAMINES SCREEN NEGATIVE; URINE BARBITURATES SCREEN NEGATIVE; URINE BENZODIAZEPINES SCREEN NEGATIVE; URINE COCAINE SCREEN NEGATIVE; URINE MARIJUANA (THC) SCREEN NEGATIVE; URINE METHADONE SCREEN NEGATIVE; URINE PHENCYCLIDINE SCREEN NEGATIVE
[2017-11-18 07:20] LABS: ABSOLUTE BASOPHILS # (AUTO) 0.1 10^3/uL (0.0-0.2); ABSOLUTE EOSINOPHILS # (AUTO) 0.1 10^3/uL (0.0-0.6); ABSOLUTE LYMPHOCYTES (AUTO) 2.1 10^3/uL (0.5-4.7); ABSOLUTE MONOCYTES (AUTO) 0.3 10^3/uL (0.1-1.4); BASOPHILS % (AUTO) 0.8 % (0-2); EOSINOPHILS % (AUTO) 1.1 % (0-6); HEMATOCRIT 34.1 % (36.0-47.0); HEMOGLOBIN 11.2 g/dL (12.0-15.5); MEAN CORPUSCULAR HEMOGLOBIN 29.1 pg (27.0-33.4); MEAN CORPUSCULAR VOLUME 88 fl (80-97); MONOCYTES % (AUTO) 3.4 % (3-13); PLATELET COUNT 308 10^3/uL (150-450); RED BLOOD COUNT 3.87 10^6/uL (3.72-5.28); RED CELL DISTRIBUTION WIDTH 16.2 % (11.5-14.0); SEGMENTED NEUTROPHILS % (AUTO) 72.7 % (42-78); TOTAL CELLS COUNTED % (AUTO) 100 %; WHITE BLOOD COUNT 9.7 10^3/uL (4.0-10.5)
[2017-11-18 07:41] LABS: ALANINE AMINOTRANSFERASE 85 U/L (9-52); ALBUMIN 3.1 g/dL (3.5-5.0); ALKALINE PHOSPHATASE 143 U/L (38-126); ANION GAP 17 (5-19); ASPARTATE AMINO TRANSFERASE 38 U/L (14-36); BILIRUBIN,DIRECT 0.4 mg/dL (0.0-0.4); BILIRUBIN,TOTAL 0.4 mg/dL (0.2-1.3); BLOOD UREA NITROGEN 13 mg/dL (7-20); CALCIUM 9.3 mg/dL (8.4-10.2); CARBON DIOXIDE 16 mmol/L (22-30); CHLORIDE 108 mmol/L (98-107); GLUCOSE 166 mg/dL (75-110); LDH 308 U/L (313-618); POTASSIUM 3.9 mmol/L (3.6-5.0); SODIUM 140.5 mmol/L (137-145); URIC ACID 4.2 mg/dL (2.5-6.2)
--- NOTE | 2017-11-18 08:24 | Non Stress Test Report ---
Non Stress Test Datetime Report Generated by CPN: 11/18/2017 08:24 DEMOGRAPHIC EGA NST: 39.0 INDICATION Indication for Study: Ordered by Provider Indication for Study (NST) Other: induction MONITORING Monitor Explained: Monitor Explained; Test Explained; Patient Verbalized Understanding Time on Monitor: 11/18/2017 07:40 Time off Monitor: 11/18/2017 08:05 NST Duration: 25 NST INTERVENTIONS NST Interventions: PO Hydration; Reposition Patient Physician Notified NST: Dr Valle BABY A Movement : Present Contraction Frequency : 0 FHR Baseline : 125 Accelerations : 15X15 Decelerations : None Variability : Moderate 6-25bpm NST Review: Meets Criteria for Reactive NST NST Review and Verified By : Denise Camp RNC NST Results: Reactive NST REPORT Report Trigger: Send Report
== END ==
LOC: LC 06:00 → LR 06:23 → UNDOADMIN 06:23 → EDSTATUS 10:29
PROVIDERS: ATTEND Student in an Organized Health Care Education/Training Program
PROC: 4A1HXCZ Monitoring of Products of Conception, Cardiac Rate, External Approach (ICD-10-PCS; principal; 2017-11-18)
DX: O24.415 Gestational diabetes mellitus in pregnancy, controlled by oral hypoglycemic drugs (principal); O99.213 Obesity complicating pregnancy, third trimester; Z68.43 Body mass index [BMI] 50.0-59.9, adult; Z3A.39 39 weeks gestation of pregnancy
CPT/HCPCS: 36415; 59025; 80053; 80307; 81001; 83615; 84550; 85025; 86592; 86850; 86900; 86901

== ENCOUNTER 2018-11-11 17:32 | Emergency (ER) | payer MEDICAID ==
[2018-11-11 17:40] VITALS: BP 146/73
--- NOTE | 2018-11-11 18:01 | ER Document Report ---
HPI - HPI Time Seen by Provider: 11/11/18 17:45 Pain Level: 5 Context: Patient is a 31-year-old morbidly obese female who presents the emergency department with right heel pain. She denies any injury to the foot. She states that walking on it hurts. The pain is mainly on the heel of her foot and radiates to the back of her foot and to the front. Denies any edema or ecchymosis. She was seen by her primary care doctor and has a referral for her foot doctor, but it is not for a couple more weeks. She has not been wearing plantar fasciitis insoles. She has not been to physical therapy. - ROS Systems Reviewed and Negative: Yes All other systems reviewed and negative - CONSTITUTIONAL Constitutional: DENIES: Fever, Chills - EENT EENT: DENIES: Sore Throat - NEURO Neurology: DENIES: Headache - CARDIOVASCULAR Cardiovascular: DENIES: Chest pain - RESPIRATORY Respiratory: DENIES: Trouble Breathing, Coughing - GASTROINTESTINAL Gastrointestinal: DENIES: Abdominal Pain - REPRODUCTIVE LMP: 10/21/18 Reproductive: DENIES: : - MUSCULOSKELETAL Musculoskeletal: REPORTS: Extremity pain - Right foot. DENIES: Back Pain, Neck Pain, Swelling - DERM Skin Color: Normal Skin Problems: None Past Medical History - Social History Smoking Status: Unknown if Ever Smoked Family History: Reviewed & Not Pertinent Pulmonary Medical History: Reports: Hx Asthma Psychiatric Medical History: Reports: Hx Depression Past Surgical History: Reports: Hx Oral Surgery - Immunizations Hx Diphtheria, Pertussis, Tetanus Vaccination: Yes - UTD Vertical Provider Document - CONSTITUTIONAL Agree With Documented VS: Yes Exam Limitations: No Limitations General Appearance: No Apparent Distress, Obese - Morbidly - INFECTION CONTROL TRAVEL OUTSIDE OF THE [place] IN LAST 30 DAYS: No - HEENT HEENT: Atraumatic, Normocephalic - NECK Neck: Normal Inspection - RESPIRATORY Respiratory: No Respiratory Distress - CARDIOVASCULAR Cardiovascular: Regular Rhythm Pulses: Normal: Posterior tibial, Dorsalis pedis - MUSCULOSKELETAL/EXTREMETIES Musculoskeletal/Extremeties: Tender - Dorsal plantar portion of the foot, No Edema. negative: Eccymosis - NEURO Level of Consciousness: Awake, Alert, Appropriate Motor/Sensory: No Motor Deficit, No Sensory Deficit, No Pronator Drift - DERM Integumentary: Warm, Dry Course - Re-evaluation Re-evalutation: 11/11/18 18:19 Patient's x-ray is negative for any acute fracture. She will be sent home with ibuprofen and Tylenol for pain relief. She received a dose of Decadron here in the emergency department. I have instructed her to wear insoles for her plantar fasciitis. Her physical exam is consistent with plantar fasciitis. I do not suspect there is a tendon injury coming or any life-threatening etiology at this time. She is in agreement with this plan. Verbal discharge instructions were given to the patient. They verbalized understanding. They are stable for discharge. - Vital Signs Vital signs: Temp Pulse Resp BP Pulse Ox 98.1 F 79 16 146/73 H 100 11/11/18 17:39 11/11/18 17:39 11/11/18 17:39 11/11/18 17:39 11/11/18 17:39 Discharge - Discharge Clinical Impression: Plantar fasciitis Condition: Stable Disposition: HOME, SELF-CARE Additional Instructions: Plantar Fasciitis or Heel Spur Plantar fasciitis is an inflammation of a ligament on the underside of the foot. It can be caused by injury, overuse such as running, or poorly fitting shoes. There may be a bone spur on the heel if inflammation has persisted a long time. Plantar fasciitis is treated with stretching exercises and antiinflammatory medicine. Please take Tylenol 1000 mg and ibuprofen 600 mg every 6 hours as needed for your pain. He also received a steroid shot here in the emergency department. More severe cases may require injection of cortisone. It may take several weeks to get better. Call or return if there is redness, increasing pain, swelling, fever, or any other new symptoms. Prescriptions: Acetaminophen [Acetaminophen Extra Strength] 1,000 mg PO Q6HP PRN #90 tablet PRN Reason: Pain Scale Of 1 Ibuprofen [Motrin 600 mg Tablet] 600 mg PO Q6HP PRN #90 tablet PRN Reason: Forms: Return to Work Referrals: IRENE JAMES NP [NO LOCAL MD] - Follow up in 3-5 days
--- NOTE | 2018-11-11 18:14 | RADIOLOGY REPORT (SQ) ---
EXAM DESCRIPTION: FOOT RIGHT COMPLETE COMPLETED DATE/TIME: 11/11/2018 6:08 pm REASON FOR STUDY: heel pain COMPARISON: None. NUMBER OF VIEWS: Three views. TECHNIQUE: AP, lateral and oblique radiographic images acquired of the right foot. LIMITATIONS: None. FINDINGS: MINERALIZATION: Normal. BONES: No acute fracture or dislocation. No worrisome bone lesions. JOINTS: No effusions. SOFT TISSUES: No soft tissue swelling. No foreign body. OTHER: No other significant finding. IMPRESSION: NEGATIVE STUDY OF THE RIGHT FOOT. NO RADIOGRAPHIC EVIDENCE OF ACUTE INJURY. TECHNICAL DOCUMENTATION: JOB ID: [id number] [employer]- All Rights Reserved Reading location - IP/workstation name: [email or web address]
[2018-11-11] MEDS ORDERED: ACETAMINOPHEN 325 MG TABLET PO ONE (18:19)
[2018-11-11] MEDS ORDERED: IBUPROFEN 600 MG TABLET PO ONE (18:19)
[2018-11-11] MEDS ORDERED: DEXAMETHASONE SOD PHOS INJ 10 MG/1 ML VIAL IM ONE (18:23)
== END 2018-11-11 18:33 | disposition home or self-care (01) ==
LOC: ER 17:32
DX: M72.2 Plantar fascial fibromatosis (principal); M79.671 Pain in right foot; J45.909 Unspecified asthma, uncomplicated; E66.01 Morbid (severe) obesity due to excess calories
CPT/HCPCS: 99283; 96372; 73630; J3490 ×2; J1100

== ENCOUNTER 2019-01-13 21:26 | Emergency (ER) | payer MEDICAID ==
[2019-01-13 21:51] VITALS: BP 148/84
--- NOTE | 2019-01-13 22:43 | ER Document Report ---
ED Extremity Problem, Lower - General Chief Complaint: Leg Pain Stated Complaint: LEFT LEG PAIN Time Seen by Provider: 01/13/19 22:13 Notes: Patient is a morbidly obese 28-year-old female presents the emergency department with redness with swelling noted to the left lateral upper leg. States she noticed the swelling on Tuesday. States it is increased and is more painful which is why she presents to the emergency room. Patient states she has a history of a thrombophlebitis. States she was given antibiotics for that which had resolved with the redness and swelling in her left lower tib-fib area. Patient's denying any long train rides, car rides, bus rides, smoking history. Denying any shortness of breath, chest pain. Patient denies taking any oral contraceptives. Patient states she does have an extensive history with varicose veins in bilateral lower extremities. TRAVEL OUTSIDE OF THE [place] IN LAST 30 DAYS: No - Related Data Allergies/Adverse Reactions: erythromycin base Allergy (Mild, Verified 11/17/18 11:42) Generalized rash Past Medical History - General Information source: Patient - Social History Smoking Status: Former Smoker Family History: Reviewed & Not Pertinent Pulmonary Medical History: Reports: Hx Asthma Renal/ Medical History: Denies: Hx Peritoneal Dialysis Psychiatric Medical History: Reports: Hx Depression Past Surgical History: Reports: Hx Oral Surgery - Immunizations Hx Diphtheria, Pertussis, Tetanus Vaccination: Yes - UTD Review of Systems - Review of Systems Constitutional: No symptoms reported EENT: No symptoms reported Cardiovascular: No symptoms reported Respiratory: No symptoms reported Gastrointestinal: No symptoms reported Genitourinary: No symptoms reported Female Genitourinary: No symptoms reported Musculoskeletal: No symptoms reported Skin: See HPI Hematologic/Lymphatic: No symptoms reported Neurological/Psychological: No symptoms reported Physical Exam - Vital signs Vitals: Temp Pulse Resp BP Pulse Ox 98.3 F 80 22 H 148/84 H 97 01/13/19 21:48 01/13/19 21:48 01/13/19 21:48 01/13/19 21:48 01/13/19 21:48 - Notes Notes: GENERAL: Alert, interacts well. No acute distress. HEAD: Normocephalic, atraumatic. EYES: Pupils equal, round, and reactive to light. Extraocular movements intact. ENT: Oral mucosa moist, tongue midline. NECK: Full range of motion. Supple. Trachea midline. LUNGS: Clear to auscultation bilaterally, no wheezes, rales, or rhonchi. No respiratory distress. HEART: Regular rate and rhythm. No murmur ABDOMEN: Morbidly obese soft, non-tender. Non-distended. Bowel sounds present in all 4 quadrants. EXTREMITIES: Moves all 4 extremities spontaneously. normal radial and dorsalis pedis pulses bilaterally. No cyanosis. Multiple varicose veins noted bilateral lower extremities anterior and posterior. Area of 13 cm x 10 cm not well demarcated erythema with no specific induration or fluctuance noted left lateral upper thigh. Patient has no calf pain bilaterally, 5 out of 5 strength all 4 extremities. BACK: no cervical, thoracic, lumbar midline tenderness. No saddle anesthesia, normal distal neurovascular exam. NEUROLOGICAL: Alert and oriented x3. Normal speech. cranial nerves II through XII grossly intact. PSYCH: Normal affect, normal mood. SKIN: Warm, dry, normal turgor. No rashes or lesions noted. Course - Re-evaluation Re-evalutation: 01/13/19 22:30 Patient is a morbidly obese 28-year-old female history of thrombophlebitis presents to the emergency department with redness and swelling noted to her left upper lateral leg. In reviewing past charts patient did receive a venous Doppler and a CTA to rule out any other clotting abnormalities. Both test results were negative, patient was treated with antibiotics for superficial phlebitis. Patient states the redness and swelling she had prior was in her left lower extremity states today's redness is in her left upper extremity. Unfortunately we do not have access to venous Doppler in the emergency department at this time. I have had an extensive conversation with patient about her treatment options. We have discussed Following up outpatient with an outpatient venous Doppler order, we have discussed coming back to the emergency room in the morning for the venous Doppler study, we have discussed staying in the emergency room until venous Doppler is successful in the morning, we have also discussed prophylactic treatment with an initial dose of Lovenox. Patient wishes to follow-up outpatient with an outpatient order for venous Doppler study. She wishes to decline initial dosing of Lovenox at this time. I have discussed this case at length with my attending Dr. Gutiérrez who agrees to prophylactically treat the patient with Keflex should this be an underlying infectious cause. Discussed at length with patient need to return to the emergency room for any respiratory distress, chest pain, increase in the patient's redness or swelling or pain. Patient is very understanding and agreeable with plan. This medical record was dictated with voice recognizing software. There may be grammatical, syntax errors that are unintended. - Vital Signs Vital signs: Temp Pulse Resp BP Pulse Ox 98.3 F 80 22 H 148/84 H 97 01/13/19 21:48 01/13/19 21:48 01/13/19 21:48 01/13/19 21:48 01/13/19 21:48 Discharge - Discharge Clinical Impression: Left leg swelling, Morbid obesity with BMI of 50.0-59.9, adult Condition: Good Disposition: HOME, SELF-CARE Instructions: Cellulitis ([facility]), DVT Outpatient Treatment ([facility]), DVT Workup Pending ([facility]), Possible Evolving Leg DVT ([facility]) Additional Instructions: As we have discussed you have been seen and treated in the emergency department for redness, swelling noted to your left lateral upper leg. Due to your history of thrombophlebitis I am concerned that you may have a deep vein thrombosis. This is a clot in your left lower extremity. Unfortunately we do not have access to a venous Doppler which is the test needed to rule out a DVT. I have given you a specific paperwork in order to get a venous Doppler study done in the morning. Should you be unable to follow-up to get your outpatient venous Doppler study please immediately return to the emergency room for same test. Please also return to the emergency room earlier should you have any respiratory distress, redness or swelling gets worse, or any other concerns. Also as we discussed I am going to give you An antibiotic called Keflex. Just in case the redness and swelling is due to an underlying infection. As always follow-up with your primary care provider in the next 24 to 48 hours. Please also return to the emergency room for any concerns. Prescriptions: Cephalexin Monohydrate [Keflex 500 mg Capsule] 500 mg PO BID 7 Days #14 capsule Fluconazole [Diflucan] 150 mg PO ONCE PRN #2 tablet PRN Reason: Forms: Follow-Up Radiology Testing, Return to Work
[2019-01-13] MEDS ORDERED: CEPHALEXIN 500 MG CAPSULE PO ONE (22:47)
== END 2019-01-13 23:00 | disposition home or self-care (01) ==
LOC: ER 21:26
DX: I83.892 Varicose veins of left lower extremity with other complications (principal); I83.91 Asymptomatic varicose veins of right lower extremity; I80.9 Phlebitis and thrombophlebitis of unspecified site; E66.01 Morbid (severe) obesity due to excess calories; Z68.43 Body mass index [BMI] 50.0-59.9, adult; J45.909 Unspecified asthma, uncomplicated; Z87.891 Personal history of nicotine dependence; Z88.1 Allergy status to other antibiotic agents
CPT/HCPCS: 99283

== ENCOUNTER → 2019-01-14 | Outpatient (CLI) | payer MEDICAID ==
--- NOTE | 2019-01-14 14:45 | XCELERA REPORT ---
[address] [address] Lower Extremity Venous Evaluation Procedure: Color flow and duplex imaging of the veins of the left lower extremity as well as the right Common Femoral vein. Right Sided Venous Evaluation The right common femoral vein is fully compressible. Spontaneous and phasic flow is present in the right common femoral vein. Left Sided Venous Evaluation Enlarged veins with surrounding edema, non compressible with echogenic content, minimal flow in serpentine superficial varicose veins, in lower lateral thigh. Extends for over 6 cms, no major venous connection elucidated. Otherwise normal vessel filling wall to wall, compression and augmentation as well as Colour flow down to the infrageniculate veins. Interpretation Summary No duplex evidence of DVT or obstruction in the left lower extremity nor in the right Common Femoral vein. Inflamed area in left thigh with acutely inflamed varicosities. Name: MIC THOMPSON Age: 28 yrs Gender: Female : 1990 Patient Status: Outpatient Patient Location: [facility] Study Date: 01/14/2019 01:30 PM Reason For Study: LLEV FOR SWELLING Ordering Physician: MEGAN MCKENNA Performed By: Torito Angel : MEGAN MCKENNA > Baltazar Murphy
== END ==
LOC: RAD 12:55
PROVIDERS: ATTEND Physician Assistant
DX: I82.409 Acute embolism and thrombosis of unspecified deep veins of unspecified lower extremity (principal)
CPT/HCPCS: 93971

== ENCOUNTER 2019-09-12 14:20 | Emergency (ER) | payer OTHER, MEDICAID ==
[2019-09-12] MEDS ORDERED: KETOROLAC TROMETHAMINE 60 MG/2 ML SDV IM ONE (15:35)
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
[2019-09-12 16:01] LABS: APPEARANCE,URINE CLOUDY; BILIRUBIN,URINE NEGATIVE (NEGATIVE); COLOR,URINE AMBER; GLUCOSE, URINE NEGATIVE (NEGATIVE); KETONES,URINE NEGATIVE (NEGATIVE); PROTEIN,URINE NEGATIVE (NEGATIVE); URINE SPECIFIC GRAVITY 1.023; UROBILINOGEN,URINE NEGATIVE mg/dL (<2.0)
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
[2019-09-12 17:05] VITALS: BP 148/91
== END 2019-09-12 17:24 | disposition home or self-care (01) ==
LOC: ER 14:20
DX: S39.012A Strain of muscle, fascia and tendon of lower back, initial encounter (principal); V49.9XXA Car occupant (driver) (passenger) injured in unspecified traffic accident, initial encounter; R42 Dizziness and giddiness; J45.909 Unspecified asthma, uncomplicated; F17.200 Nicotine dependence, unspecified, uncomplicated
CPT/HCPCS: 99283; 96372; 81025; 81001; 72110; J1885